=== PATIENT | male | born 1975 | race Caucasian/White ===

== ENCOUNTER 2021-04-30 14:27 | Emergency (ER) | payer MEDICAID ==
[~2021-04-30] VITALS: Ht 170.2 cm; Wt 79.4 kg
[2021-04-30 15:08] VITALS: BP 175/101
[2021-04-30] MEDS ORDERED: FLUORESCEIN SODIUM OPHTH 1 EA STRIP ONE (15:24)
[2021-04-30] MEDS ORDERED: CETI-90 PO (15:44)
[2021-04-30] MEDS ORDERED: PROP10DR10 OP (15:44)
[2021-04-30] MEDS ORDERED: CIPR2.5D14 EACHEYE (15:44)
--- NOTE | 2021-04-30 15:58 | NUR ---
Patient discharged to home in stable condition. Written and verbal after care instructions given. Patient verbalizes understanding of instruction.
== END 2021-04-30 15:58 | disposition home or self-care (01) ==
LOC: ER 14:27
DX: H10.13 Acute atopic conjunctivitis, bilateral (principal); I10 Essential (primary) hypertension

== ENCOUNTER 2023-08-17 07:58 | Emergency (ER) | payer MEDICAID ==
[~2023-08-17] VITALS: Ht 170.2 cm; Wt 79.4 kg
[~2023-08-17 07:58] MED LIST: CETI-90 PO; CIPR2.5D14 EACHEYE; PROP10DR10 OP
[2023-08-17] MEDS ORDERED: ACYC-108 PO (09:40)
[2023-08-17 10:21] VITALS: BP 141/99; TEMP 97.8; O2SAT 98
== END 2023-08-17 09:44 | disposition home or self-care (01) ==
LOC: ER 07:58
DX: B00.9 Herpesviral infection, unspecified (principal); I10 Essential (primary) hypertension; Z79.899 Other long term (current) drug therapy

== ENCOUNTER 2024-12-10 09:32 | Emergency (ER) | payer MEDICAID, OTHER ==
[~2024-12-10] VITALS: Ht 172.7 cm; Wt 77.1 kg
[~2024-12-10 09:32] MED LIST changes: +ACYC-108 PO
[2024-12-10] MEDS ORDERED: HYDR30CR79 TP (10:17)
[2024-12-10] MEDS ORDERED: DOCU-141 PO (10:17)
[2024-12-10 10:24] VITALS: BP 154/98; TEMP 97.8; O2SAT 98
== END 2024-12-10 10:24 | disposition home or self-care (01) ==
LOC: ER 09:34
DX: L29.89 Other pruritus (principal); K64.4 Residual hemorrhoidal skin tags; K60.2 Anal fissure, unspecified; I10 Essential (primary) hypertension